=== PATIENT | male | born 1970 | race Caucasian/White ===

== ENCOUNTER 2016-09-03 14:41 | Observation (INO) | payer MEDICARE, OTHER ==
[~2016-09-03] VITALS: Ht 190.5 cm; Wt 113.6 kg
--- NOTE | ~2016-09-03 | CO ---
ADMIT: 09/03/2016 RM/LOC: 431 [facility] MR#: [id number] [address] [address] MARIJA HARRISON [address] [place] [address] Consultation SEX: M AGE: 46 : 1970 DATE OF CONSULTATION: 09/04/2016 ATTENDING PHYSICIAN: Donis Mack CONSULTING PHYSICIAN: Mason Raines MD CHIEF COMPLAINT: Persistent nausea, vomiting, and upper abdominal pain. HISTORY OF PRESENT ILLNESS: This is a pleasant, 46-year-old, male patient of Dr. Mack, who has had about a 3-month history of nausea, some vomiting, and epigastric pain. He was admitted for this yesterday, had an ultrasound done today, which showed a normal gallbladder. He does though have a kidney transplant which looked normal also on the ultrasound. So, I was asked to see him for possible endoscopy given his symptoms and his persistent epigastric pain, nausea, vomiting, and diarrhea. PAST MEDICAL HISTORY: Also includes diabetes, obesity, previous kidney transplant. PAST SURGICAL HISTORY: Again, he has had the right-sided kidney transplant done in 1992. Denies any other abdominal surgeries. He has never had endoscopy done before. MEDICATIONS: Well outlined on the chart. ALLERGIES: NONE. SOCIAL HISTORY: Noncontributory. REVIEW OF SYSTEMS: A 10-point review of systems is negative with the exception of his persistent nausea, vomiting, epigastric pain, and diarrhea now. PHYSICAL EXAMINATION: GENERAL: He is alert. He is oriented. No acute distress. HEENT: Normal. ADMIT: 09/03/2016 RM/LOC: 431 [facility] MR#: [id number] 2620 [facility] [address] [place] [id number] MARIJA HARRISON [address] [place] [address] Consultation SEX: M AGE: 46 : 1970 LUNGS: Clear. HEART: Regular. ABDOMEN: Obese, soft, and nondistended. He has mild tenderness over his kidney transplant in the right lower quadrant region, but otherwise, no peritoneal signs. EXTREMITIES: Warm and pink without edema. ASSESSMENT: Epigastric pain, nausea, vomiting, and diarrhea. PLAN: I have recommended proceeding with EGD. I have gone through risks and benefits of this procedure in depth with the patient. He does understand all of this and agrees to proceed. Mason Raines MD/ barry JOB #: [id number] CC: Donis Mack, Attending Physician Donis Mack, Family Physician
[2016-09-05] MEDS ORDERED: NORVASC5 MG PO (14:19)
[2016-09-05] MEDS ORDERED: IMURAN DPS50 MG PO (14:19)
[2016-09-05] MEDS ORDERED: ZOCOR DPS20 MG PO (14:20)
[2016-09-05] MEDS ORDERED: ZESTRIL30 MG PO (14:20)
[2016-09-05] MEDS ORDERED: PROGRAF0.5 MG PO (14:22)
[2016-09-05] MEDS ORDERED: DELTASONE DPS5 MG PO (14:22)
[2016-09-05] MEDS ORDERED: PROTONIX40 MG PO (14:22)
[2016-09-05] MEDS ORDERED: PERCOCET 10 DPS1 TAB PO (14:23)
[2016-09-05] MEDS ORDERED: CELEXA40 MG PO (14:23)
[2016-09-05] MEDS ORDERED: LOFIBRA160 MG PO (14:23)
[2016-09-05] MEDS ORDERED: LANTUS SOL100 UNIT/1 SQ (14:24)
[2016-09-05] MEDS ORDERED: ZYRTEC DPS10 MG PO (14:24)
[2016-09-05] MEDS ORDERED: HUMALOG100 UNIT/1 SQ (14:24)
--- NOTE | 2016-09-10 10:36 | OR ---
ADMIT: 09/03/2016 RM/LOC: 431 [facility] MR#: [id number] [address] [address] MARIJA HARRISON [address] [place] [address] Operative/Delivery Room Report SEX: M AGE: 46 : 1970 SURGERY DATE: 09/04/2016 SURGEON: Mason Raines MD PREOPERATIVE DIAGNOSES: 1. Epigastric pain. 2. Nausea. 3. Vomiting. POSTOPERATIVE DIAGNOSIS: Mild duodenitis. PROCEDURE PERFORMED: EGD with biopsies. ANESTHESIA: Sedation. ESTIMATED BLOOD LOSS: None. DESCRIPTION OF PROCEDURE: After appropriate informed consent was obtained, the patient was brought to the endoscopy suite. IV sedation was provided. A well-lubricated endoscope was introduced and passed down the esophagus. The esophageal mucosa appeared normal although there were some retained secretions within the esophagus that were easily suctioned out, but the mucosa appeared normal. GE junction appeared sharp and distinct. Just a very small hiatal hernia, maybe 0.5 cm in length, but no significant stricture or narrowing. No esophagitis. The scope was advanced to the stomach. The gastric mucosa appeared normal throughout. The pylorus intubated. Duodenal bulb showed mild duodenitis. Second and third portions of the duodenum appeared normal. The scope was then pulled back from stomach, retroflexed revealing again just a very small sliding type hiatal hernia from below. No proximal gastritis or mass. Several biopsies taken of the antrum. Biopsies also taken of the duodenum. The stomach was then deflated and scope withdrawn without apparent complications. The patient tolerated the procedure well and was taken to the recovery room in stable condition. Mason Raines MD/ barry JOB #: [id number] CC: Donis Mack MD, Attending Physician Donis Mack MD, Family Physician Donis Mack MD
--- NOTE | 2016-09-21 08:54 | DS ---
ADMIT: 09/03/2016 RM/LOC: 431 [facility] MR#: [id number] [address] [address] MARIJA HARRISON [address] [place] [address] General Discharge Summary SEX: M AGE: 46 : 1970 ADMISSION DATE: 09/03/2016 DISCHARGE DATE: 09/04/2016 FINAL DIAGNOSES: 1. Abdominal pain. 2. Nausea and vomiting. 3. History of renal transplant. 4. Diabetes. 5. Hypertension. REASON FOR ADMISSION: This is a 46-year-old gentleman, presented with persistent nausea and vomiting to clinic. This has been happening for the last few months, but actually got worse recently. Pain was kind of right upper quadrant and epigastric, and he was nauseated all the time. Initially, he was found to have elevated creatinine, so he was admitted and given IV fluids. By the next day, he was feeling much better. Abdominal ultrasound looked okay. Kidneys had improved a lot. Overall, he had a Surgery consult, which did not look like he had anything surgical; however, did do an EGD which showed some mild duodenitis which was actually fairly unremarkable, so the patient was feeling okay, blood sugars were not well controlled, but doing okay given he was not eating very much, so he is felt to be okay to be discharged to home, so he is set up on the same home medications to be discharged home on the 09/04/2016, so this was done. Donis Mack MD/ barry JOB #: [id number] CC: Donis Mack MD, Attending Physician Donis Mack MD, Family Physician
--- NOTE | 2016-10-03 07:52 | HP ---
ADMIT: 09/03/2016 RM/LOC: 431 [facility] MR#: [id number] [address] [facility] [address] [place], [place] [address] MARIJA HARRISON [address] [place] [address] History and Physical SEX: M AGE: 46 : 1970 DATE OF SERVICE: HISTORY OF PRESENT ILLNESS: Mr. Harrison is a very pleasant, 46-year-old male, who presents to [facility] accompanied by his with complaint of overall fatigue and malaise over the last few months. Symptoms have worsened over the last few days. He also notes nausea, has not vomited. Has had generalized abdominal pain that seems a bit worse in his epigastric to right upper quadrant area. He states he is nauseated all the time. He has not been eating much, but continues to drink plenty of fluids. He has also noted a change in his bowel movements, says they are pale in color and appeared to look greasy in nature. He does still have his gallbladder present. Mr. Harrison has a history of a kidney transplant in the past. He is followed by documentation coordinator from [facility]. According to his a few weeks ago, the patient actually looked worse, he was pale and even more lethargic. Guido really never feels very well, so she feared he would snap out of it like he usually does. He has also started taking Zyrtec for what he thought was some postnasal drip, that could be causing part of his nausea. Unfortunately, the Zyrtec did not make any difference at all. Mr. Harrison has a history of diabetes, his blood sugars have been stable at home in between 100 and 150 according to the patient. He denies fevers, chills, or body aches, and he has had no recent change in medications. As mentioned, he is quite fatigued, sleeps most of the time, has been slightly more down recently. PAST MEDICAL HISTORY: 1. Hypercholesterolemia. 2. Hypertension. 3. Sleep apnea. 4. Hypertrophic cardiomyopathy. 5. Type 2 diabetes, insulin dependent. 6. Proteinuria. 7. Status post kidney transplant. 8. Chronic immunosuppression. 9. Osteopenia. 10.History of pacemaker. FAMILY HISTORY: Mother is , had history of osteoarthritis and depression. Father had history of alcoholic cirrhosis. Sister, history of Raynaud's. Also, has family history of diabetes and hypertension. SOCIAL HISTORY: He is and disabled. MEDICATIONS: 1. Norvasc 10 mg. 2. Imuran 50 mg 3 tablets by mouth 1 time a day. 3. Celexa 40 mg. 4. Triglide 160 mg tablet 1 tablet daily. 5. Humalog per sliding scale. 6. Lantus 60 units daily in the morning. ADMIT: 09/03/2016 RM/LOC: 431 [facility] MR#: [id number] [facility] [address] [address] [place] [address] History and Physical SEX: M AGE: 46 : 1970 7. Humalog 10 units t.i.d. plus the sliding scale. 8. Lisinopril 30 mg daily. 9. Percocet 10/325 one tablet by mouth every 8 hours as needed for severe pain. 10.Protonix 40 mg p.o. daily. 11.Prednisone 5 mg p.o. daily. 12.Mucinex D 600 one tablet every 12 hours as needed. 13.Zocor 20 mg p.o. at bedtime. 14.Prograf 0.5 mg capsules take 3 capsules by mouth b.i.d. 15.Cialis 1 tablet daily as needed for ED. ALLERGIES: 1. AMIODARONE. 2. AUGMENTIN. 3. ANCEF. 4. CLARITIN-D. 5. PENICILLINS. SOCIAL HISTORY: History of smoking half pack per day, but quit years ago. No alcohol use. No drug use or abuse. REVIEW OF SYSTEMS: A 12-point review of system was complete and otherwise documented in the HPI. PHYSICAL EXAMINATION: GENERAL: Slightly sickly appearing white male. INTEGUMENTARY: Skin is slightly pale and dry. EYES: HUNTER. MOUTH AND THROAT: Mucous membranes are moist, no redness or swelling posterior nasopharynx. HEART: Regular rate and rhythm. No murmurs auscultated. LUNGS: Clear to auscultation. Respirations are even and unlabored. No cough noted. ABDOMEN: Soft, slightly distended. Bowel sounds are active x4, he has generalized tenderness with deep palpation, negative Rossi sign, no rebound tenderness. MUSCULOSKELETAL: He is ambulating around the clinic okay, no obvious weakness or muscle atrophy noted. NEUROLOGIC: He is alert, appropriate, does let his do most of his speaking, does seem a bit upset to be in the clinic today. LABORATORY DATA: Hemoglobin A1c is improved to 9.5 from 11.6 three months ago. Lipase slightly elevated at 86 as compared to 82 a few months ago. Amylase is within normal limits. CBC reveals a slightly elevated white blood cell count of 12.1, hemoglobin of 14.2, platelets of 249, lymphocytes slightly low at 16, otherwise within normal limits. CMP shows normal liver function tests. Glucose of 421, creatinine elevated at 2.11, and a GFR of 41. ASSESSMENT AND PLAN: Initially, plan was to do outpatient ultrasound along ADMIT: 09/03/2016 RM/LOC: 431 [facility] MR#: [id number] [address] [address] MARIJA HARRISON [address] [place] [id number] History and Physical SEX: M AGE: 46 : 1970 with IV fluids given his elevated creatinine, but after speaking with documentation coordinator at [facility], it was decided that it will be best to admit him inpatient for IV fluids and ultrasound. If he does not respond well to the fluids and depending on what the abdominal ultrasound shows, he may need transferred up to [facility] for further evaluation by a transplant senior energy analyst. The patient's was called with this plan after the appointment and agrees to directly take the patient over to [facility]. I also discussed the case with Dr. Nael Moon, who will admit the patient tonight on behalf of Dr. Donis Mack. Transplant senior energy analyst, Dr. Young is willing to take any phone calls for input between now and the time of transport, his pager number is area code [phone]. All further labs and workup per Dr. Moon and Dr. Mack. Angelica Rodrigues APRN / Nael Moon MD / barry JOB #: [id number] CC: Donis Mack, Attending Physician Donis Mack, Family Physician
== END 2016-09-04 14:40 | disposition home or self-care (01) ==
LOC: 4PCU 14:41
PROVIDERS: ADMIT Internal Medicine
PROC: 0DB98ZX Excision of Duodenum, Via Natural or Artificial Opening Endoscopic, Diagnostic (ICD-10-PCS; principal; 2016-09-04)
PROC: 0DB68ZX Excision of Stomach, Via Natural or Artificial Opening Endoscopic, Diagnostic (ICD-10-PCS; principal; 2016-09-04)
DX: K29.50 Unspecified chronic gastritis without bleeding (principal); K29.80 Duodenitis without bleeding; K44.9 Diaphragmatic hernia without obstruction or gangrene; I10 Essential (primary) hypertension; E78.5 Hyperlipidemia, unspecified; E11.65 Type 2 diabetes mellitus with hyperglycemia; Z88.0 Allergy status to penicillin; Z88.1 Allergy status to other antibiotic agents; Z88.8 Allergy status to other drugs, medicaments and biological substances; Z95.0 Presence of cardiac pacemaker; Z98.890 Other specified postprocedural states

== ENCOUNTER → 2016-09-24 | Outpatient (CLI) | payer MEDICARE, OTHER ==
[~2016-09-24] MED LIST: CELEXA40 MG PO; DELTASONE DPS5 MG PO; HUMALOG100 UNIT/1 SQ; IMURAN DPS50 MG PO; LANTUS SOL100 UNIT/1 SQ; LOFIBRA160 MG PO; NORVASC5 MG PO; PERCOCET 10 DPS1 TAB PO; PROGRAF0.5 MG PO; PROTONIX40 MG PO; ZESTRIL30 MG PO; ZOCOR DPS20 MG PO; ZYRTEC DPS10 MG PO
== END | disposition home or self-care (01) ==
LOC: RAD.S 09-22 09:30
DX: R10.13 Epigastric pain (principal); R10.11 Right upper quadrant pain